=== PATIENT | female | born 1935 | race Caucasian/White ===

== ENCOUNTER 2018-07-09 20:52 | Inpatient (IN) ==
[2018-07-09] MEDS: 0.9 % Sodium Chloride 1,000 ML IVC SCH (23:15)
[2018-07-09] MEDS ORDERED: Naloxone 0.4 MG/ML INJ IVP PRN (23:24)
--- NOTE | 2018-07-09 23:30 | Internal Med History&Physical ---
Date of Encounter: 07/10/18 Time of Encounter: 23:30 Internal Medicine - H&P: HPI Chief complaint: Mechanical Fall/Hip & Wrist Fx History of present illness: Ms. Michael is a pleasant 82 year old female with past medical history of arthritis, hypertension and hyperlipidemia who presented earlier today to [facility] after a reported mechanical fall in her kitchen. She states that she was baking earlier today around 2 PM and as she was walking from one end of the kitchen to the other she tripped and fell landing into one of the appliances against her right arm has subsequently went down to the ground. She denies any symptoms of dizziness or lightheadedness prior or chest pain, shortness of breath. She was able to stand up on her own and initially felt okay. It was not until around 5:30 PM in the afternoon in which her pain gradually increased and she became concerned that something was wrong. It was at this time she called her daughter who then brought her into the ED at [facility]. Imaging of the hip revealed a right subcapital hip fracture as well as a linear lucency noted within the radial styloid process concerning for a nondisplaced fracture. Labs were notable for a mild leukocytosis of 13.8. Patient is not currently on any blood thinners. Past Med Surg Social Fam HX - Past Medical History Medical history: arthritis, GERD, hyperlipidemia, hypertension, other Additional medical history: Hypothyroidism, Anxiety Psychiatric history: anxiety - Past Surgical History Additional surgical history: Back surgery x3. Hernia surgeries x2. Lt foot surgery. Lt toe surgery. Varicose vein surgery. Rt knee surgery - Social History Smoking Status: Never smoker Smokeless Tobacco Status: No Alcohol use: none Drug use: none - Family History Mother Living Status: Age at : 82 Cause of : pancreatic cancer Hx Family Cancer: Yes Father Living Status: Age at : 87 Cause of : stroke Hx Family Cardiac Disorders: Yes Internal Medicine - H&P: Meds Amitriptyline [Elavil] 50 mg PO HS 08/14/16 [History] Furosemide [Lasix] 20 mg PO Q48H 08/14/16 [History] Omeprazole [PriLOSEC] 20 mg PO DAILY 08/14/16 [History] Pravastatin Sodium [Pravachol] 40 mg PO DAILY 08/14/16 [History] Zonisamide [Zonegran] 100 mg PO HS 08/14/16 [History] diazePAM [Valium] 2 mg PO BID 08/14/16 [History] Aspirin Enteric Coated [Aspirin EC] 162 mg PO DAILY 07/10/18 [History] Calcium Carbonate [Calcium] 500 mg PO DAILY 07/10/18 [History] Lactobacillus Acidophilus/Fos [Acidophilus Probiotic Tablet] 1 each PO DAILY 08/17 [History] Lisinopril [Zestril] 10 mg PO DAILY 07/10/18 [History] Multivit-Minerals/Folic/Ginkgo [One Daily For Women 50+ Adv Tb] 1 each PO DAILY 07/10/18 [History] 3 Allergy/AdvReac Type Severity Reaction Status Date / Time Penicillins Allergy Hives Verified 07/10/18 11:37 levofloxacin [From Levaquin] AdvReac Tendonitis Verified 07/10/18 11:37 All Systems PM: A 10-system review of systems was performed and is negative for pertinent findings except as documented above in the HPI. - Constitutional Constitutional: no chills, no fever(s), no night sweats - EENT Eyes: no change in vision, no discharge, no pain, no photophobia Ears: no ear discharge, no ear pain, no tinnitus Nose, mouth and throat: no dysphagia, no nasal discharge, no neck pain, no sore throat - Cardiovascular Cardiovascular ROS IM: no chest pain, no diaphoresis, no dyspnea, no lightheadedness, no palpitations, no syncope - Respiratory Respiratory: no cough, no dyspnea, no wheezing, no excessive phlegm production - Gastrointestinal Gastrointestinal: no abdominal pain, no diarrhea, no hematemesis, no hematochezia, no melena, no nausea, no vomiting - Genitourinary Genitourinary: no change in urinary stream, no dysuria, no flank pain, no hematuria - Musculoskeletal Musculoskeletal ROS IM: no numbness, no tingling - Integumentary Integumentary IM: no rash, no unusual bruising - Neurological Neurological ROS: no confusion, no convulsions, no focal weakness, no numbness, no tingling, no tremor(s) - Hematologic/Lymphatic Hematologic/Lymphatic: no easy bruising - Constitutional Exam: General: Alert and oriented 3 Skin:Normal color, no rash, no lesions. HEENT:EOM, pupils equal, round and reactive. Cardiovascular:Normal S1 & S2, no rubs, murmurs or gallops. No JVD. Pulse regular. Lungs:Normal breath sounds, no wheezes or crackles. Abdomen:Soft, non-tender, no rigidity. Extremities:No deformity, no edema involving the right hip or right forearm. Mild tenderness tenderness, no joint swelling or clubbing. Neurological:Normal cognition and motor skills. Pulses:Carotid and radial pulses normal +2. Rest of the physical exam is non contributory Internal Med - H&P Results - Labs CBC & Chem 7: 07/10/18 00:37 07/10/18 00:37 - Assessment and plan (1) Closed right hip fracture Current Visit: No Status: Acute Assessment and plan: Nondisplaced right subcapital femoral neck fracture in the setting of mechanical fall. No evidence of surrounding edema. Patient hemodynamically stable. No evidence of bleed. Patient was able to ambulate if not for the pain. We will keep patient nothing by mouth after midnight. DVT prophylaxis. Pain regimen on board. Orthopedic consult in the morning. Qualifiers: Encounter type: initial encounter Qualified Code(s): S72.001A - Fracture of unspecified part of neck of right femur, initial encounter for closed fracture (2) Radial styloid fracture Current Visit: No Status: Acute Assessment and plan: Imaging showed subtle linear lucency within the radial styloid process suspicious for nondisplaced fracture. Right arm currently in a splint. Patient has good pulses. Further evaluation in the morning. Qualifiers: Encounter type: initial encounter Qualified Code(s): S52.513A - Displaced fracture of unspecified radial styloid process, initial encounter for closed fracture (3) Leukocytosis Current Visit: Yes Status: Acute Assessment and plan: Mildly elevated leukocytosis of 13.8. Likely in the setting of trauma. We will monitor. Qualifiers: Qualified Code(s): D72.829 - Elevated white blood cell count, unspecified (4) Hypertension Current Visit: Yes Status: Acute Assessment and plan: Continue home antihypertensives. Qualifiers: Hypertension type: unspecified Qualified Code(s): I10 - Essential (primary ) hypertension (5) Hyperlipidemia Current Visit: Yes Status: Acute Assessment and plan: Continue home statin. Qualifiers: Hyperlipidemia type: unspecified Qualified Code(s): E78.5 - Hyperlipidemia , unspecified (6) DVT prophylaxis Current Visit: Yes Status: Acute - Time Spent With Patient Total time spent is greater than 50% in coordination of care (as documented) at patient's floor/unit and/or counseling patient:
[2018-07-10] MEDS ORDERED: Ondansetron ODT 4 MG TAB.RAPDIS SL PRN (00:01)
[2018-07-10] MEDS ORDERED: Acetaminophen 325 MG TABLET PO PRN (00:01)
[2018-07-10] MEDS ORDERED: traMADol 50 MG TABLET PO PRN (00:01)
[2018-07-10 00:56] LABS: Basophils % 0.3 %; Hematocrit 39.2 % (35.3-44.9); Hemoglobin 12.9 g/dL (11.5-15.4); Immature Granulocytes % 0.5 % (0-4); Lymphocytes % 8.2 %; Mean Corpuscular HGB Conc 32.9 g/dL (31.6-35.5); Mean Corpuscular Hemoglobin 31.9 pg (28.0-33.3); Mean Platelet Volume 10.6 fL (9.4-12.4); Monocytes # 0.7 K/mcL (0.0-1.3); Monocytes % 5.8 %; Neutrophils # 10.7 K/mcL (1.6-8.9); Platelet Count 201 K/mcL (140-400); Red Blood Count 4.04 M/mcL (3.82-4.97); Red Cell Distribution Width 13.9 % (11.5-14.5); Segmented Neutrophils % 85.2 %
[2018-07-10] MEDS: *HR* Heparin 5,000 UNIT/ML VIAL SQ SCH ×4 (01:08→23:52)
[2018-07-10] MEDS: OXYCODONE Oral CONC 10 MG/0.5 ML ORAL.SYG SL PRN ×3 (01:09→20:58)
[2018-07-10 01:14] LABS: Alanine Aminotransferase 21 Units/L (7-52); Albumin/Globulin Ratio 1.9 (1.1-2.2); Alkaline Phosphatase 68 Units/L (34-104); Aspartate Amino Transferase 24 Units/L (13-39); BUN/Creatinine Ratio 12 (6-26); Bilirubin,Total 0.9 mg/dL (0.3-1.0); Blood Urea Nitrogen 13 mg/dL (8-23); Calcium 9.4 mg/dL (8.6-10.3); Carbon Dioxide 21 mEq/L (23-29); Chloride 110 mEq/L (98-107); Globulin 2.1 g/dL (2.4-3.5); Glucose 153 mg/dL (70-105); Osmolality,Calculated 293 (280-300); Potassium 3.4 mEq/L (3.5-5.1); Sodium 140 mEq/L (136-145); Total Protein 6.1 g/dL (6.4-8.9); eGFR For Non-African Americans 50 (> 60)
[2018-07-10] MEDS: 0.9 % Sodium Chloride 1,000 ML IVC SCH (08:58)
--- NOTE | 2018-07-10 17:23 | Orthopedic Consult Note ---
Date of Encounter: 07/10/18 Time of Encounter: 13:00 Assessment and Plan (1) Closed right hip fracture Current Visit: Yes Status: Acute Plan for OR 07/11 with for a Right Hip Pinning. Both conservative and surgical options discussed with patient and daughter. Risks veersus benefits reviewed, patient opted for surgery. Consent was signed by patient. NPO after midnight, pain control, medical management, and DVT prophylaxis. Qualifiers: Encounter type: initial encounter Qualified Code(s): S72.001A - Fracture of unspecified part of neck of right femur, initial encounter for closed fracture (2) Fracture of right ulnar styloid Current Visit: Yes Status: Acute Splint removed, skin assessed. Small abrasion to dorsum of forearm. New cast padding applied with splint. NV intact. Will plan to transition to brace x 2-4 weeks with rpeat xrays Qualifiers: Encounter type: initial encounter Fracture type: closed Fracture alignment: nondisplaced Qualified Code(s): S52.614A - Nondisplaced fracture of right ulna styloid process, initial encounter for closed fracture (3) Hyperlipidemia Current Visit: Yes Status: Acute Qualifiers: Hyperlipidemia type: unspecified Qualified Code(s): E78.5 - Hyperlipidemia , unspecified (4) Hypertension Current Visit: Yes Status: Acute Qualifiers: Hypertension type: essential hypertension Qualified Code(s): I10 - Essential (primary) hypertension History of Present Illness Chief complaint: Right Hip pain HPI: Alec is a pleasant 82 year old female with past medical history of arthritis , hypertension and hyperlipidemia who presented earlier today to [facility] after a reported mechanical fall in her kitchen. SHe lives independently, she tripped and fell landing into one of the appliances against her right arm has subsequently went down to the ground. She denies any symptoms of dizziness or lightheadedness prior or chest pain, shortness of breath. S Her pain gradually increased and was unable to ambulate. I Imaging of the hip revealed a right subcapital hip fracture as well as a linear lucency noted within the radial styloid process concerning for a nondisplaced fracture. Labs were notable for a mild leukocytosis of 13.8. Patient is not currently on any blood thinners. Past Med Surg Social Fam HX - Past Medical History Medical history: arthritis, GERD, hyperlipidemia, hypertension, other Additional medical history: Hypothyroidism, Anxiety Psychiatric history: anxiety - Past Surgical History Additional surgical history: Back surgery x3. Hernia surgeries x2. Lt foot surgery. Lt toe surgery. Varicose vein surgery. Rt knee surgery - Social History Smoking Status: Never smoker Smokeless Tobacco Status: No Alcohol use: none Drug use: none - Family History Mother Living Status: Age at : 82 Cause of : pancreatic cancer Hx Family Cancer: Yes Father Living Status: Age at : 87 Cause of : stroke Hx Family Cardiac Disorders: Yes Medications and Allergies Amitriptyline [Elavil] 50 mg PO HS 08/14/16 [History] Furosemide [Lasix] 20 mg PO Q48H 08/14/16 [History] Omeprazole [PriLOSEC] 20 mg PO DAILY 08/14/16 [History] Pravastatin Sodium [Pravachol] 40 mg PO DAILY 08/14/16 [History] Zonisamide [Zonegran] 100 mg PO HS 08/14/16 [History] diazePAM [Valium] 2 mg PO BID 08/14/16 [History] Aspirin Enteric Coated [Aspirin EC] 162 mg PO DAILY 07/10/18 [History] Calcium Carbonate [Calcium] 500 mg PO DAILY 07/10/18 [History] Lactobacillus Acidophilus/Fos [Acidophilus Probiotic Tablet] 1 each PO DAILY 08/17 [History] Lisinopril [Zestril] 10 mg PO DAILY 07/10/18 [History] Multivit-Minerals/Folic/Ginkgo [One Daily For Women 50+ Adv Tb] 1 each PO DAILY 07/10/18 [History] 3 Allergy/AdvReac Type Severity Reaction Status Date / Time Penicillins Allergy Hives Verified 07/10/18 11:37 levofloxacin [From Levaquin] AdvReac Tendonitis Verified 07/10/18 11:37 All Systems Reviewed: The remainder of the systems were reviewed and are negative Physical Exam - Constitutional Vitals: Temp Pulse Resp BP Pulse Ox 97.9 F 94 16 143/77 96 07/10/18 17:07 07/10/18 17:07 07/10/18 17:07 07/10/18 17:07 07/10/18 03:31 - Fracture right hip Appearance: other Compartments: soft Distal extremity neurovascularly intact: Yes Proximal joint involvement: No Distal joint involvement: No Other injury: muscle injury: no, tendon injury: no, ligament injury: no, vascular injury: no, nerve injury: no Results - Labs Result Diagrams: 07/11/18 11:06 07/11/18 11:06 Labs: Abnormal lab results WBC 12.6 K/mcL (4.3-11.1) H 07/10/18 00:37 Neutrophils # 10.7 K/mcL (1.6-8.9) H 07/10/18 00:37 Potassium 3.4 mEq/L (3.5-5.1) L 07/10/18 00:37 Chloride 110 mEq/L (98-107) H 07/10/18 00:37 Carbon Dioxide 21 mEq/L (23-29) L 07/10/18 00:37 Est GFR (Non-Af Amer) 50 (> 60) L 07/10/18 00:37 Glucose 153 mg/dL (70-105) H 07/10/18 00:37 Serum Total Protein 6.1 g/dL (6.4-8.9) L 07/10/18 00:37 Globulin 2.1 g/dL (2.4-3.5) L 07/10/18 00:37 H & H 07/10/18 Range/Units 00:37 Hgb 12.9 (11.5-15.4) g/dL Hct 39.2 (35.3-44.9) % All other labs normal. - Diagnostic results Wrist/Hand x-ray: report reviewed, image reviewed Hip x-ray: report reviewed, image reviewed Consult Discharge Plan - Plan Referrals: Madelyn Villa MD [Primary Care Provider] -
[2018-07-10] MEDS ORDERED: Furosemide 20 MG TABLET PO SCH (19:00)
--- NOTE | 2018-07-10 19:40 | Internal Med Progress Note ---
Hospitalist Progress Note - Encounter Date of Encounter: 07/10/18 Time of Encounter: 11:00 - Subjective Interval History: Patient's with right hip pain secondary to right hip fracture status post mechanical fall. Patient also with styloid fracture of right arm - Exam Vitals: Temp Pulse Resp BP Pulse Ox 97.9 F 94 16 143/77 96 07/10/18 17:07 07/10/18 17:07 07/10/18 17:07 07/10/18 17:07 07/10/18 03:31 Exam: Gen.: Nonacute distress, alert and oriented 3 ENT: Mucosal membranes moist Respiratory: Lungs are clear to auscultation bilaterally without any wheezing rhonchi or rales Cardiovascular: Normal S1 and S2 regular rate rhythm no murmurs rubs or gallops Abdomen: Soft, nontender and nondistended with positive bowel sounds Extremities: No lower extremity edema Skin: Normal color - Assessment and Plan (1) Closed right hip fracture Current Visit: No Status: Acute Assessment and Plan: Nondisplaced right subcapital femoral neck fracture in the setting of mechanical fall. Patient hemodynamically stable. Orthopedics consulted with plans for surgery on 07/11/18 (2) Radial styloid fracture Current Visit: No Status: Acute Assessment and Plan: Imaging showed subtle linear lucency within the radial styloid process suspicious for nondisplaced fracture. Right arm currently in a splint. Orthopedics consulted and appreciate recommendations (3) Hypertension Current Visit: Yes Status: Acute Assessment and Plan: Continue home antihypertensives. (4) Hyperlipidemia Current Visit: Yes Status: Acute Assessment and Plan: Continue home statin. (5) Leukocytosis Current Visit: Yes Status: Acute Assessment and Plan: Mildly elevated leukocytosis of 13.8. Likely in the setting of trauma. We will monitor. (6) DVT prophylaxis Current Visit: Yes Status: Acute Assessment and Plan: Heparin subcutaneous - Time Spent with Patient Total time spent is greater than 50% in coordination of care (as documented) at patient's floor/unit and/or counseling patient: Internal Medicine: Result - Labs CBC & Chem 7: 07/10/18 00:37 07/10/18 00:37 Labs: Short CBC 07/10/18 Range/Units 00:37 WBC 12.6 H (4.3-11.1) K/mcL Hgb 12.9 (11.5-15.4) g/dL Hct 39.2 (35.3-44.9) % Plt Count 201 (140-400) K/mcL Neutrophils # 10.7 H (1.6-8.9) K/mcL BMP 07/10/18 00:37 Sodium 140 Potassium 3.4 L Chloride 110 H Carbon Dioxide 21 L BUN 13 Creatinine 1.05 Glucose 153 H Calcium 9.4 Liver Function 07/10/18 Range/Units 00:37 Total Bilirubin 0.9 (0.3-1.0) mg/dL AST 24 (13-39) Units/L ALT 21 (7-52) Units/L Alkaline Phosphatase 68 (34-104) Units/L Albumin 4.0 (3.5-5.7) g/dL - Impressions Impressions Hip CT 07/10/18 10:33 IMPRESSION: 1. Acute right femoral subcapital neck fracture with mild impaction, displacement, and rotation. Normal right hip alignment. 2. Bilateral hip osteoarthritis. 3. Mild right lateral hip subcutaneous contusion. D/ / 07/10/2018 11:24:50 Henok Arellano MD / devante Interpreting Provider: Henok Arellano MD Consult Discharge Plan - Plan Referrals: Madelyn Villa MD [Primary Care Provider] - (1) Closed right hip fracture Qualifiers: Encounter type: initial encounter Qualified Code(s): S72.001A - Fracture of unspecified part of neck of right femur, initial encounter for closed fracture (2) Radial styloid fracture Qualifiers: Encounter type: initial encounter Qualified Code(s): S52.513A - Displaced fracture of unspecified radial styloid process, initial encounter for closed fracture (3) Hypertension Qualifiers: Hypertension type: unspecified Qualified Code(s): I10 - Essential (primary) hypertension (4) Hyperlipidemia Qualifiers: Hyperlipidemia type: unspecified Qualified Code(s): E78.5 - Hyperlipidemia, unspecified (5) Leukocytosis Qualifiers: Qualified Code(s): D72.829 - Elevated white blood cell count, unspecified
[2018-07-10] MEDS: diazePAM 2 MG TABLET PO SCH (20:57)
--- NOTE | 2018-07-11 06:37 | Orthopedics Progress Note ---
Date of Encounter: 07/11/18 Time of Encounter: 06:36 Subjective Interval history: Reviewed x-ray and CT scan nondisplaced fracture right hip. Plan for right hip pinning. Discussed this with the patient, surgery will be this afternoon. We reviewed the risks and benefits as well as recovery. All questions were answered. The patient agreed to this treatment plan and appeared to understand the plan is reviewed. Objective Vital signs: Vital Signs Temp Pulse Resp BP Pulse Ox 07/11/18 04:33 98.2 F 87 16 111/68 90 07/11/18 00:55 98.1 F 86 17 115/70 90 07/10/18 22:10 92 07/10/18 20:11 99.0 F 88 16 122/71 92 07/10/18 17:07 97.9 F 94 16 143/77 07/10/18 11:38 98.9 F 92 16 125/74 07/10/18 07:40 98.0 F 89 16 114/69 Intake and Output 07/10/18 07/10/18 07/11/18 15:59 23:59 07:59 Intake Total 1000 / 1000 240 / 240 Output Total 400 / 400 Balance 600 / 600 240 / 240 Intake: IV Fluids 1000 / 1000 0.9 % Sodium Chloride 1,000 ML 1000 / 1000 @ 100 mls/hr IVC .Q10H CORKY Rx#: [id number] Oral 240 / 240 Output: Urine 400 / 400 Other: Meal Dinner Percent of Meal Consumed 100% # Voids 1 1 Weight 58.8 kg Patient Weight 07/11/18 23:59 Weight 58.8 kg - Labs CBC & BMP: 07/10/18 00:37 07/10/18 00:37 Labs: Abnormal lab results WBC 12.6 K/mcL (4.3-11.1) H 07/10/18 00:37 Neutrophils # 10.7 K/mcL (1.6-8.9) H 07/10/18 00:37 Potassium 3.4 mEq/L (3.5-5.1) L 07/10/18 00:37 Chloride 110 mEq/L (98-107) H 07/10/18 00:37 Carbon Dioxide 21 mEq/L (23-29) L 07/10/18 00:37 Est GFR (Non-Af Amer) 50 (> 60) L 07/10/18 00:37 Glucose 153 mg/dL (70-105) H 07/10/18 00:37 Serum Total Protein 6.1 g/dL (6.4-8.9) L 07/10/18 00:37 Globulin 2.1 g/dL (2.4-3.5) L 07/10/18 00:37 Consult Discharge Plan - Plan Referrals: Madelyn Villa MD [Primary Care Provider] -
[2018-07-11] MEDS ORDERED: Aspirin Enteric Coated 81 MG Tablet PO SCH (09:00)
[2018-07-11] MEDS ORDERED: Multivit/Ca/Min/Fe/FA 1 TAB TABLET PO SCH (09:00)
[2018-07-11] MEDS ORDERED: Lactobacillus 1 EACH CAP.SPRINK PO SCH (09:00)
[2018-07-11] MEDS: *HR* Heparin 5,000 UNIT/ML VIAL SQ SCH ×2 (10:49→16:26)
[2018-07-11] MEDS: diazePAM 2 MG TABLET PO SCH ×2 (10:49→20:00)
[2018-07-11] MEDS: OXYCODONE Oral CONC 10 MG/0.5 ML ORAL.SYG SL PRN (10:53)
--- NOTE | 2018-07-11 10:55 | Internal Med Progress Note ---
Hospitalist Progress Note - Encounter Date of Encounter: 07/11/18 Time of Encounter: 11:00 - Subjective Interval History: Patient's with right hip pain secondary to right hip fracture status post mechanical fall. Patient also with styloid fracture of right arm. Patient to go today for right hip pinning per orthopedic recommendations - Exam Vitals: Temp Pulse Resp BP Pulse Ox 98.2 F 91 16 111/67 96 07/11/18 10:42 07/11/18 10:42 07/11/18 10:42 07/11/18 10:42 07/11/18 10:42 Exam: Gen.: Nonacute distress, alert and oriented 3 ENT: Mucosal membranes moist Respiratory: Lungs are clear to auscultation bilaterally without any wheezing rhonchi or rales Cardiovascular: Normal S1 and S2 regular rate rhythm no murmurs rubs or gallops Abdomen: Soft, nontender and nondistended with positive bowel sounds Extremities: No lower extremity edema Skin: Normal color - Assessment and Plan (1) Closed right hip fracture Current Visit: Yes Status: Acute Assessment and Plan: Patient's with right hip pain secondary to right hip fracture status post mechanical fall. Patient to go today for right hip pinning per orthopedic recommendations (2) Fracture of right ulnar styloid Current Visit: Yes Status: Acute Assessment and Plan: Right arm currently in splint Orthopedics following and appreciate recommendations (3) Hypertension Current Visit: Yes Status: Acute Assessment and Plan: Continue home antihypertensives. (4) Hyperlipidemia Current Visit: Yes Status: Acute Assessment and Plan: Continue home statin. (5) Leukocytosis Current Visit: Yes Status: Acute Assessment and Plan: Mildly elevated leukocytosis of 13.8. Likely in the setting of trauma. We will monitor. (6) DVT prophylaxis Current Visit: Yes Status: Acute Assessment and Plan: Heparin subcutaneous - Time Spent with Patient Total time spent is greater than 50% in coordination of care (as documented) at patient's floor/unit and/or counseling patient: Internal Medicine: Result - Labs CBC & Chem 7: 07/11/18 11:06 07/11/18 11:06 - Impressions Impressions Hip CT 07/10/18 10:33 IMPRESSION: 1. Acute right femoral subcapital neck fracture with mild impaction, displacement, and rotation. Normal right hip alignment. 2. Bilateral hip osteoarthritis. 3. Mild right lateral hip subcutaneous contusion. D/ / 07/10/2018 11:24:50 Henok Arellano MD / devante Interpreting Provider: Henok Arellano MD Consult Discharge Plan - Plan Referrals: Madelyn Villa MD [Primary Care Provider] - (1) Closed right hip fracture Qualifiers: Encounter type: initial encounter Qualified Code(s): S72.001A - Fracture of unspecified part of neck of right femur, initial encounter for closed fracture (2) Fracture of right ulnar styloid Qualifiers: Encounter type: initial encounter Fracture type: closed Fracture alignment: nondisplaced Qualified Code(s): S52.614A - Nondisplaced fracture of right ulna styloid process, initial encounter for closed fracture (3) Hypertension Qualifiers: Hypertension type: essential hypertension Qualified Code(s): I10 - Essential (primary) hypertension (4) Hyperlipidemia Qualifiers: Hyperlipidemia type: unspecified Qualified Code(s): E78.5 - Hyperlipidemia, unspecified
[2018-07-11 11:32] LABS: Basophils # 0.1 K/mcL (0.0-0.2); Basophils % 0.8 %; Eosinophils # 0.3 K/mcL (0.0-0.6); Eosinophils % 3.4 %; Hemoglobin 12.3 g/dL (11.5-15.4); Immature Granulocytes % 0.4 % (0-4); Lymphocytes # 1.2 K/mcL (0.6-4.6); Lymphocytes % 13.7 %; Mean Corpuscular HGB Conc 33.2 g/dL (31.6-35.5); Mean Corpuscular Hemoglobin 32.3 pg (28.0-33.3); Mean Corpuscular Volume 97.1 fL (83.0-100.0); Mean Platelet Volume 11.1 fL (9.4-12.4); Monocytes # 0.7 K/mcL (0.0-1.3); Monocytes % 8.4 %; Neutrophils # 6.3 K/mcL (1.6-8.9); Platelet Count 164 K/mcL (140-400); Red Blood Count 3.81 M/mcL (3.82-4.97); Red Cell Distribution Width 14.4 % (11.5-14.5); Segmented Neutrophils % 73.3 %
[2018-07-11 11:51] LABS: BUN/Creatinine Ratio 11 (6-26); Blood Urea Nitrogen 11 mg/dL (8-23); Calcium 8.7 mg/dL (8.6-10.3); Carbon Dioxide 24 mEq/L (23-29); Chloride 107 mEq/L (98-107); Glucose 95 mg/dL (70-105); Osmolality,Calculated 287 (280-300); Potassium 3.6 mEq/L (3.5-5.1); Sodium 139 mEq/L (136-145); eGFR For Non-African Americans 51 (> 60)
[2018-07-11] MEDS ORDERED: *HR* FentaNYL (PF) 100 MCG/2 ML VIAL ONE (16:12)
[2018-07-11] MEDS ORDERED: *HR* Propofol 200 MG/20 ML VIAL IVP ONE (16:13)
[2018-07-11] MEDS ORDERED: Acetaminophen IV 1,000 MG/100 ML INFUS..BTL ONE (16:21)
[2018-07-11] MEDS ORDERED: Famotidine 20 MG/2 ML VIAL ONE (16:22)
--- NOTE | 2018-07-11 16:26 | Anesthesia Evaluation PreOp ---
Date of Encounter: 07/11/18 Time of Encounter: 16:30 - Past History Planned Operation: Perc Pinning Rt Hip Cardiac History: HTN, Hyperlipidemia Pulmonary History: Denies Any Significant HX DATA ANALYTICS ANALYST History: Denies Any Significant HX Other Medical History: Thyroid (Hypothyroid), GERD, Other (Arthritis Anxiety) Anesthesia History: No Prior Anesthetic Complications Alcohol Use: none Drug use: none Medications and Allergies Amitriptyline [Elavil] 50 mg PO HS 08/14/16 [History] Furosemide [Lasix] 20 mg PO Q48H 08/14/16 [History] Omeprazole [PriLOSEC] 20 mg PO DAILY 08/14/16 [History] Pravastatin Sodium [Pravachol] 40 mg PO DAILY 08/14/16 [History] Zonisamide [Zonegran] 100 mg PO HS 08/14/16 [History] diazePAM [Valium] 2 mg PO BID 08/14/16 [History] Aspirin Enteric Coated [Aspirin EC] 162 mg PO DAILY 07/10/18 [History] Calcium Carbonate [Calcium] 500 mg PO DAILY 07/10/18 [History] Lactobacillus Acidophilus/Fos [Acidophilus Probiotic Tablet] 1 each PO DAILY 08/17 [History] Lisinopril [Zestril] 10 mg PO DAILY 07/10/18 [History] Multivit-Minerals/Folic/Ginkgo [One Daily For Women 50+ Adv Tb] 1 each PO DAILY 07/10/18 [History] 3 Allergy/AdvReac Type Severity Reaction Status Date / Time Penicillins Allergy Hives Verified 07/10/18 11:37 levofloxacin [From Levaquin] AdvReac Tendonitis Verified 07/10/18 11:37 - Meds/Allergy Pre-op Review Medications Reviewed: Yes Allergies Reviewed: Yes Beta Blockers on Current Med List: No Anesthesia Results - Labs 07/11/18 11:06 07/11/18 11:06 Laboratory Tests 07/11/18 07/11/18 11:06 11:06 Hgb 12.3 Hct 37.0 Plt Count 164 Sodium 139 Potassium 3.6 BUN 11 Creatinine 1.04 Anesthesia Exam O2 Sat Weight 58.8 kg O2 Sat by Pulse Oximetry 97 O2 Sat by Pulse Oximetry 96 O2 Sat by Pulse Oximetry 90 O2 Sat by Pulse Oximetry 90 O2 Sat by Pulse Oximetry 92 O2 Sat by Pulse Oximetry 92 Vital Signs Temp Pulse Resp BP Pulse Ox 98.7 F 82 18 106/70 93 07/10/18 00:59 07/10/18 00:59 07/10/18 00:59 07/10/18 00:59 07/10/18 00:59 Height: 5'0 Weight: 129 lbs NPO (# of Hours): MN Pain Scale: 0 - HEENT Pupil (Motor): Pupils equal, EOMI Mallampati: II Oral Opening: Greater than 3 - DATA ANALYTICS ANALYST LOC: Oriented DATA ANALYTICS ANALYST Motor: Normal RUE, Normal LUE, Normal RLE, Normal LLE, Normal Face DATA ANALYTICS ANALYST Sensory: Normal: RUE, LUE, RLE, LLE, Face - Cardiac Rhythm: Regular Murmur: None JVD: No Carotid Bruit: No - Pulmonary Breath Sounds: bilateral Clear Respiratory Effort: Symmetrical Anesthesia Assess/Plan ASA Score: 3 (HTN Hyperlipidemia Gerd Hypothyroid Osteoarthritis Extreme of Age) Modified [place] Scale for Level of Consciousness: Cooperative, oriented, and tranquil Anesthetic Plan: General Monitoring Plan: Standard Monitors Recovery Plan: PACU (Discussed GA, agrees to proceed)
[2018-07-11] MEDS ORDERED: Clindamycin 900 MG/50 ML 900 MG/50 ML IV.SOLN IVPB ONE (16:40)
[2018-07-11] MEDS ORDERED: *HR* OxyCODONE Immed Rel 5 MG TABLET PO PRN (17:04)
[2018-07-11] MEDS ORDERED: *HR* Morphine 2 MG/ML SYRINGE IVP PRN (17:04)
[2018-07-11] MEDS ORDERED: *HR* Promethazine 25 MG/ML VIAL IVP PRN (17:04)
[2018-07-11] MEDS ORDERED: *HR* PHENYLEPHRINE 1,000 MCG/10 ML SYRINGE IVP ONE (17:07)
--- NOTE | 2018-07-11 17:10 | Orthopedic Operative Note ---
Date of procedure: 07/11/18 Pre-op diagnosis: Nondisplaced right femoral neck fracture Post-op diagnosis: same Procedure: Procedure: Right hip pinning Estimated blood loss: 5 cc Hardware:Synthes 2 7.3 cannulated metal screws Operative procedure: The patient was brought to the operating room and placed on the operating room table. After general anesthesia was administered the well leg was place in the well leg curiel and the operative leg was placed in the fracture leg curiel. All pressure points were padded appropriately. The operative extremity was prepped and draped in the sterile surgical fashion patient received IV antibiotic prior to skin incision. Using fluoroscopic assistance a guidepin was placed through a small stab incision on the lateral aspect of the femur. Placed through the lateral femur across the fracture site into the femoral head addition of the guidepin was found to be acceptable in AP and lateral planes. A second guidepin was placed in an appropriate position and confirmed with fluoroscopy. Two 7.3 cannulated screws were placed over the guidepins, and their position was confirmed with fluoroscopy as well. Hardware as well as fracture site was well reduced and well positioned. Wound was irrigated and closed with a 2-0 Monocryl suture The patient was placed in a sterile dressing The patient was extubated and transferred to the recovery room in stable condition. Anesthesia: GETA Surgeon: Sacha Mccullough Was there an communication assistant present: No Estimated blood loss (cc): 5 Condition: stable Disposition: PACU
--- NOTE | 2018-07-11 17:39 | Anesthesia Evaluation Post Op ---
Date of Encounter: 07/11/18 Time of Encounter: 17:50 - Vital Signs Vital Signs: Vital Signs/O2 Sat/Glucose, Most Current Temp Pulse Resp BP Pulse Ox 07/11/18 17:33 87 16 110/77 97 07/11/18 17:23 89 18 110/79 97 07/11/18 17:13 101.0 F H 90 18 101/58 93 07/11/18 16:25 96 18 140/74 94 07/11/18 14:00 98.4 F 87 16 117/64 97 - Lungs Lungs: Clear Ascult./Percussion - Airway Airway: Non-obstructed - Cardiovascular Regular Rate - Mental Status Mental Status: Alert & Oriented, Answers Appropriately - Pain Pain Scale: 0 - Nausea Vomiting Nausea Vomiting: Not Present - Hydration Hydration: NPO - Discharge PostOp Status: Transfer Patient to floor
[2018-07-11] MEDS ORDERED: Acetaminophen 325 MG TABLET PO PRN (18:15)
[2018-07-11] MEDS ORDERED: Naloxone 0.4 MG/ML INJ IVP PRN ×2 (18:15)
[2018-07-11] MEDS ORDERED: traMADol 50 MG TABLET PO PRN (18:15)
[2018-07-11] MEDS ORDERED: Ondansetron ODT 4 MG TAB.RAPDIS SL PRN (18:15)
[2018-07-12] MEDS: *HR* Heparin 5,000 UNIT/ML VIAL SQ SCH ×3 (00:09→16:17)
[2018-07-12] MEDS: Clindamycin 900 MG/50 ML 900 MG/50 ML IV.SOLN IVPB SCH ×2 (00:09→08:35)
[2018-07-12 06:27] LABS: Hematocrit 34.8 % (35.3-44.9); Hemoglobin 11.4 g/dL (11.5-15.4)
--- NOTE | 2018-07-12 07:56 | Internal Med Progress Note ---
Hospitalist Progress Note - Encounter Date of Encounter: 07/12/18 Time of Encounter: 11:00 - Subjective Interval History: Patient's with right hip pain secondary to right hip fracture status post mechanical fall. Patient also with styloid fracture of right arm. Postop day 1 right hip pinning - Exam Vitals: Temp Pulse Resp BP Pulse Ox 98.1 F 75 16 119/65 97 07/12/18 07:25 07/12/18 07:25 07/12/18 07:25 07/12/18 07:25 07/12/18 07:25 Exam: Gen.: Nonacute distress, alert and oriented 3 ENT: Mucosal membranes moist Respiratory: Lungs are clear to auscultation bilaterally without any wheezing rhonchi or rales Cardiovascular: Normal S1 and S2 regular rate rhythm no murmurs rubs or gallops Abdomen: Soft, nontender and nondistended with positive bowel sounds Extremities: No lower extremity edema Skin: Normal color - Assessment and Plan (1) Closed right hip fracture Current Visit: Yes Status: Acute Assessment and Plan: Patient's with right hip pain secondary to right hip fracture status post mechanical fall. Postop day 1 right hip pinning Patient [place] placement for [place] [facility] for strengthening conditioning Orthopedics following in appreciate any additional recommendations (2) Fracture of right ulnar styloid Current Visit: Yes Status: Acute Assessment and Plan: Right arm currently in splint Orthopedics following and appreciate recommendations (3) Hypertension Current Visit: Yes Status: Acute Assessment and Plan: Controlled; continue SONU inhibitor (4) Hyperlipidemia Current Visit: Yes Status: Acute Assessment and Plan: Continue home statin. (5) Leukocytosis Current Visit: Yes Status: Acute DVT Prophylaxis: Heparin subcutaneous - Time Spent with Patient Total time spent is greater than 50% in coordination of care (as documented) at patient's floor/unit and/or counseling patient: Internal Medicine: Result - Labs CBC & Chem 7: 07/12/18 08:15 07/12/18 08:15 Labs: Short CBC 07/11/18 07/12/18 Range/Units 11:06 06:14 WBC 8.6 (4.3-11.1) K/mcL Hgb 12.3 11.4 L (11.5-15.4) g/dL Hct 37.0 34.8 L (35.3-44.9) % Plt Count 164 (140-400) K/mcL Neutrophils # 6.3 (1.6-8.9) K/mcL BMP 07/11/18 11:06 Sodium 139 Potassium 3.6 Chloride 107 Carbon Dioxide 24 BUN 11 Creatinine 1.04 Glucose 95 Calcium 8.7 - Impressions Impressions Hip X-Ray 07/11/18 16:46 IMPRESSION: Placement of partially threaded screws in the right femoral neck without evidence of hardware complication. D/ / Ezequiel Yoder MD / Ezequiel Yoder MD Interpreting Provider: Ezequiel Yoder MD Fluoroscopy 07/11/18 16:50 IMPRESSION: Please see operative report for further details. D/ / Ezequiel Yoder MD / Ezequiel Yoder MD Interpreting Provider: Ezequiel Yoder MD Hip X-Ray 07/11/18 16:50 IMPRESSION: Please see operative report for further details. D/ / Ezequiel Yoder MD / Ezequiel Yoder MD Interpreting Provider: Ezequiel Yoder MD Consult Discharge Plan - Plan Referrals: Madelyn Villa MD [Primary Care Provider] - (1) Closed right hip fracture Qualifiers: Encounter type: initial encounter Qualified Code(s): S72.001A - Fracture of unspecified part of neck of right femur, initial encounter for closed fracture (2) Fracture of right ulnar styloid Qualifiers: Encounter type: initial encounter Fracture type: closed Fracture alignment: nondisplaced Qualified Code(s): S52.614A - Nondisplaced fracture of right ulna styloid process, initial encounter for closed fracture (3) Hypertension Qualifiers: Hypertension type: essential hypertension Qualified Code(s): I10 - Essential (primary) hypertension (4) Hyperlipidemia Qualifiers: Hyperlipidemia type: unspecified Qualified Code(s): E78.5 - Hyperlipidemia, unspecified
[2018-07-12] MEDS: Lactobacillus 1 EACH CAP.SPRINK PO SCH (08:34)
[2018-07-12] MEDS: diazePAM 2 MG TABLET PO SCH ×2 (08:34→19:50)
[2018-07-12] MEDS: Multivit/Ca/Min/Fe/FA 1 TAB TABLET PO SCH (08:35)
[2018-07-12] MEDS: Aspirin Enteric Coated 81 MG Tablet PO SCH (08:35)
[2018-07-12 08:37] LABS: Basophils # 0.1 K/mcL (0.0-0.2); Basophils % 0.9 %; Eosinophils # 0.1 K/mcL (0.0-0.6); Hematocrit 41.3 % (35.3-44.9); Immature Granulocytes % 0.4 % (0-4); Lymphocytes # 1.2 K/mcL (0.6-4.6); Mean Corpuscular HGB Conc 32.2 g/dL (31.6-35.5); Mean Corpuscular Hemoglobin 32.1 pg (28.0-33.3); Mean Corpuscular Volume 99.8 fL (83.0-100.0); Mean Platelet Volume 11.6 fL (9.4-12.4); Monocytes # 0.7 K/mcL (0.0-1.3); Monocytes % 8.8 %; Neutrophils # 6.1 K/mcL (1.6-8.9); Platelet Count 178 K/mcL (140-400); Red Blood Count 4.14 M/mcL (3.82-4.97); Red Cell Distribution Width 13.9 % (11.5-14.5); Segmented Neutrophils % 73.9 %
[2018-07-12] MEDS: OXYCODONE Oral CONC 10 MG/0.5 ML ORAL.SYG SL PRN ×3 (08:41→21:00)
[2018-07-12 08:42] LABS: Hemoglobin 13.3 g/dL (11.5-15.4)
[2018-07-12 08:57] LABS: BUN/Creatinine Ratio 13 (6-26); Blood Urea Nitrogen 13 mg/dL (8-23); Calcium 8.9 mg/dL (8.6-10.3); Carbon Dioxide 24 mEq/L (23-29); Chloride 106 mEq/L (98-107); Glucose 103 mg/dL (70-105); Osmolality,Calculated 284 (280-300); Potassium 3.9 mEq/L (3.5-5.1); Sodium 137 mEq/L (136-145); eGFR For Non-African Americans 54 (> 60)
--- NOTE | 2018-07-12 14:56 | Orthopedics Progress Note ---
Date of Encounter: 07/12/18 Time of Encounter: 14:52 Subjective Principal diagnosis: R hip fx Interval history: Patient is without complaints She is participating well with therapy Right hip: Dressings clean dry intact, no swelling, but nontender, grossly neurovascularly intact distally Right upper extremity: Long cockup fracture brace in place, repositioned as it was sliding down slightly distal. Positive swelling of digits. Abrasion to right small finger, skin tear to proximal right forearm. Assessment: postoperative day #1, doing well Plan: Continue nonweightbearing to right hand Continue ambulation with use of a platform walker Continue DVT prophylaxis Discharge planning Follow-up with Suki Ro PA-C in 2 weeks Objective Vital signs: Vital Signs Temp Pulse Resp BP Pulse Ox 07/12/18 11:15 97.7 F 72 16 104/54 94 07/12/18 07:25 98.1 F 75 16 119/65 97 07/12/18 04:45 98.4 F 75 16 108/68 97 07/12/18 00:28 98.0 F 75 18 114/64 93 07/11/18 21:05 98.4 F 88 17 118/68 94 07/11/18 20:10 94 07/11/18 20:05 98.1 F 81 17 121/70 94 07/11/18 19:05 16 119/60 94 07/11/18 18:43 76 16 112/51 93 07/11/18 18:05 98.3 F 88 16 109/66 92 07/11/18 17:43 99.9 F H 89 16 129/71 97 07/11/18 17:33 87 16 110/77 97 07/11/18 17:23 89 18 110/79 97 07/11/18 17:13 101.0 F H 90 18 101/58 93 07/11/18 16:25 96 18 140/74 94 Intake and Output 07/11/18 07/12/18 07/12/18 23:59 07:59 15:59 Intake Total 50 / 50 300 / 300 Output Total 355 / 355 Balance -355 / -355 50 / 50 300 / 300 Intake: IV Fluids 50 / 50 50 / 50 Cleocin Premix 900 MG/50 ML 900 50 / 50 50 / 50 mg In 50 ml @ 50 mls/hr IVPB Q8HR [facility] Rx#:[id number] Oral 250 / 250 Output: Urine 350 / 350 Estimated Blood Loss Other: Meal Breakfast Percent of Meal Consumed 50% Weight 58.3 kg Patient Weight 07/12/18 23:59 Weight 58.3 kg - Labs CBC & BMP: 07/12/18 08:15 07/12/18 08:15 Labs: Abnormal lab results Est GFR (Non-Af Amer) 54 (> 60) L 07/12/18 08:15 Serum Total Protein 6.1 g/dL (6.4-8.9) L 07/10/18 00:37 Globulin 2.1 g/dL (2.4-3.5) L 07/10/18 00:37 Consult Discharge Plan - Plan Referrals: Madelyn Villa MD [Primary Care Provider] -
[2018-07-12] MEDS ORDERED: Furosemide 20 MG TABLET PO SCH (19:00)
[2018-07-13] MEDS: *HR* Heparin 5,000 UNIT/ML VIAL SQ SCH ×3 (02:00→16:06)
[2018-07-13 07:20] LABS: Basophils # 0.1 K/mcL (0.0-0.2); Eosinophils # 0.5 K/mcL (0.0-0.6); Eosinophils % 7.1 %; Hematocrit 34.4 % (35.3-44.9); Immature Granulocytes % 0.4 % (0-4); Lymphocytes # 2.3 K/mcL (0.6-4.6); Lymphocytes % 33.7 %; Mean Corpuscular HGB Conc 32.3 g/dL (31.6-35.5); Mean Corpuscular Hemoglobin 32.3 pg (28.0-33.3); Mean Platelet Volume 11.7 fL (9.4-12.4); Monocytes # 0.9 K/mcL (0.0-1.3); Monocytes % 12.9 %; Platelet Count 179 K/mcL (140-400); Red Blood Count 3.44 M/mcL (3.82-4.97); Red Cell Distribution Width 14.1 % (11.5-14.5); Segmented Neutrophils % 44.9 %
[2018-07-13 07:26] LABS: Hemoglobin 11.1 g/dL (11.5-15.4)
[2018-07-13 07:49] LABS: Calcium 8.5 mg/dL (8.6-10.3); Potassium 3.7 mEq/L (3.5-5.1)
[2018-07-13] MEDS: Multivit/Ca/Min/Fe/FA 1 TAB TABLET PO SCH (10:22)
[2018-07-13] MEDS: Aspirin Enteric Coated 81 MG Tablet PO SCH (10:23)
[2018-07-13] MEDS: Lactobacillus 1 EACH CAP.SPRINK PO SCH (10:23)
[2018-07-13] MEDS: diazePAM 2 MG TABLET PO SCH ×2 (10:23→19:32)
--- NOTE | 2018-07-13 10:27 | Internal Med Progress Note ---
Hospitalist Progress Note - Encounter Date of Encounter: 07/13/18 Time of Encounter: 11:00 - Subjective Interval History: Patient's with right hip pain secondary to right hip fracture status post mechanical fall. Patient also with styloid fracture of right arm. Postop day 2 right hip pinning Patient [place] [facility] - Exam Vitals: Temp Pulse Resp BP Pulse Ox 98.2 F 77 16 109/73 95 07/13/18 07:21 07/13/18 07:21 07/13/18 07:21 07/13/18 07:21 07/13/18 03:18 Exam: Gen.: Nonacute distress, alert and oriented 3 ENT: Mucosal membranes moist Respiratory: Lungs are clear to auscultation bilaterally without any wheezing rhonchi or rales Cardiovascular: Normal S1 and S2 regular rate rhythm no murmurs rubs or gallops Abdomen: Soft, nontender and nondistended with positive bowel sounds Extremities: No lower extremity edema Skin: Normal color - Assessment and Plan (1) Closed right hip fracture Current Visit: Yes Status: Acute Assessment and Plan: Patient's with right hip pain secondary to right hip fracture status post mechanical fall. Postop day 2 right hip pinning Patient awaiting placement for [place] [facility] for strengthening conditioning Orthopedics following in appreciate any additional recommendations (2) Fracture of right ulnar styloid Current Visit: Yes Status: Acute Assessment and Plan: Right arm currently in splint Orthopedics following and appreciate recommendations (3) Hypertension Current Visit: Yes Status: Acute Assessment and Plan: Controlled; continue SONU inhibitor (4) Hyperlipidemia Current Visit: Yes Status: Acute Assessment and Plan: Continue home statin. (5) Leukocytosis Current Visit: Yes Status: Acute Assessment and Plan: Resolved; continue to monitor DVT Prophylaxis: Heparin subcutaneous - Time Spent with Patient Total time spent is greater than 50% in coordination of care (as documented) at patient's floor/unit and/or counseling patient: Internal Medicine: Result - Labs CBC & Chem 7: 07/13/18 06:19 07/13/18 06:19 Labs: Short CBC 07/13/18 Range/Units 06:19 WBC 6.7 (4.3-11.1) K/mcL Hgb 11.1 L D (11.5-15.4) g/dL Hct 34.4 L (35.3-44.9) % Plt Count 179 (140-400) K/mcL Neutrophils # 3.0 (1.6-8.9) K/mcL BMP 07/13/18 06:19 Sodium 137 Potassium 3.7 Chloride 104 Carbon Dioxide 27 BUN 15 Creatinine 1.16 Glucose 92 Calcium 8.5 L Consult Discharge Plan - Plan Referrals: Madelyn Villa MD [Primary Care Provider] - (1) Closed right hip fracture Qualifiers: Encounter type: initial encounter Qualified Code(s): S72.001A - Fracture of unspecified part of neck of right femur, initial encounter for closed fracture (2) Fracture of right ulnar styloid Qualifiers: Encounter type: initial encounter Fracture type: closed Fracture alignment: nondisplaced Qualified Code(s): S52.614A - Nondisplaced fracture of right ulna styloid process, initial encounter for closed fracture (3) Hypertension Qualifiers: Hypertension type: essential hypertension Qualified Code(s): I10 - Essential (primary) hypertension (4) Hyperlipidemia Qualifiers: Hyperlipidemia type: unspecified Qualified Code(s): E78.5 - Hyperlipidemia, unspecified
[2018-07-13] MEDS: OXYCODONE Oral CONC 10 MG/0.5 ML ORAL.SYG SL PRN ×2 (16:10→22:30)
[2018-07-14] MEDS: *HR* Heparin 5,000 UNIT/ML VIAL SQ SCH ×3 (00:03→16:11)
[2018-07-14 03:40] LABS: Basophils # 0.1 K/mcL (0.0-0.2); Eosinophils # 0.4 K/mcL (0.0-0.6); Hematocrit 33.2 % (35.3-44.9); Hemoglobin 10.9 g/dL (11.5-15.4); Immature Granulocytes % 0.6 % (0-4); Lymphocytes # 2.6 K/mcL (0.6-4.6); Lymphocytes % 36.8 %; Mean Corpuscular HGB Conc 32.8 g/dL (31.6-35.5); Mean Corpuscular Hemoglobin 32.4 pg (28.0-33.3); Mean Corpuscular Volume 98.8 fL (83.0-100.0); Mean Platelet Volume 11.2 fL (9.4-12.4); Neutrophils # 3.1 K/mcL (1.6-8.9); Platelet Count 189 K/mcL (140-400); Red Blood Count 3.36 M/mcL (3.82-4.97); Red Cell Distribution Width 14.3 % (11.5-14.5); Segmented Neutrophils % 42.6 %
[2018-07-14 03:56] LABS: BUN/Creatinine Ratio 14 (6-26); Blood Urea Nitrogen 15 mg/dL (8-23); Calcium 8.7 mg/dL (8.6-10.3); Carbon Dioxide 27 mEq/L (23-29); Chloride 105 mEq/L (98-107); Glucose 107 mg/dL (70-105); Osmolality,Calculated 285 (280-300); Potassium 3.8 mEq/L (3.5-5.1); Sodium 137 mEq/L (136-145); eGFR For Non-African Americans 50 (> 60)
[2018-07-14] MEDS: Aspirin Enteric Coated 81 MG Tablet PO SCH (08:19)
[2018-07-14] MEDS: Multivit/Ca/Min/Fe/FA 1 TAB TABLET PO SCH (08:19)
[2018-07-14] MEDS: diazePAM 2 MG TABLET PO SCH (08:19)
[2018-07-14] MEDS: Lactobacillus 1 EACH CAP.SPRINK PO SCH (08:19)
--- NOTE | 2018-07-14 15:19 | Discharge Summary ---
- NOTES TO OUTPATIENT PROVIDER Notes to Outpatient Provider: Patient to follow-up orthopedics as an outpatient Date of Encounter: 07/14/18 Time of Encounter: 11:00 - Discharge Diagnosis (1) Closed right hip fracture Priority: Primary Status: Acute Qualifiers: Encounter type: initial encounter Qualified Code(s): S72.001A - Fracture of unspecified part of neck of right femur, initial encounter for closed fracture (2) Fracture of right ulnar styloid Priority: Primary Status: Acute Qualifiers: Encounter type: initial encounter Fracture type: closed Fracture alignment: nondisplaced Qualified Code(s): S52.614A - Nondisplaced fracture of right ulna styloid process, initial encounter for closed fracture (3) Hypertension Priority: Secondary Status: Acute Qualifiers: Hypertension type: essential hypertension Qualified Code(s): I10 - Essential (primary) hypertension (4) Hyperlipidemia Priority: Secondary Status: Acute Qualifiers: Hyperlipidemia type: unspecified Qualified Code(s): E78.5 - Hyperlipidemia , unspecified (5) Leukocytosis Priority: Secondary Status: Acute Qualifiers: Leukocytosis type: unspecified Qualified Code(s): D72.829 - Elevated white blood cell count, unspecified Hospital course: Patient is a 82-year-old female with past medical history significant for arthritis, hypertension and hyperlipidemia who presented earlier today to [facility] after a reported mechanical fall in her kitchen. She states that she was baking and as she was walking from one end of the kitchen to the other she tripped and fell landing into one of the appliances against her right arm has subsequently went down to the ground. She denies any symptoms of dizziness or lightheadedness prior or chest pain, shortness of breath. She was able to stand up on her own and initially felt okay. It was not until later that afternoon in which her pain gradually increased and she became concerned that something was wrong. It was at this time she called her daughter who then brought her into the ED at [place]. Imaging of the hip revealed a right subcapital hip fracture as well as a linear lucency noted within the radial styloid process concerning for a nondisplaced fracture. Patient was transferred to the [facility] for further medical management. During patients hospital stay orthopedics consulted with recommendations for right hip pain which was done. Patient will be discharged to detention facility for strengthening and reconditioning. - Time Spent with Patient Total time spent providing and/or coordinating discharge services: Less than 30 minutes - Discharge Medications Prescriptions: diazePAM [Valium] 2 mg PO BID 3 Days #6 tablet OXYCODONE Oral CONC [Oxycodone Oral Conc] 10 mg SL Q4H PRN 3 Days #18 oral.syg PRN Reason: Severe Pain Home Medications: Amitriptyline [Elavil] 50 mg PO HS 08/14/16 [History] Furosemide [Lasix] 20 mg PO Q48H 08/14/16 [History] Omeprazole [PriLOSEC] 20 mg PO DAILY 08/14/16 [History] Pravastatin Sodium [Pravachol] 40 mg PO DAILY 08/14/16 [History] Zonisamide [Zonegran] 100 mg PO HS 08/14/16 [History] Aspirin Enteric Coated [Aspirin EC] 162 mg PO DAILY 07/10/18 [History] Calcium Carbonate [Calcium] 500 mg PO DAILY 07/10/18 [History] Lactobacillus Acidophilus/Fos [Acidophilus Probiotic Tablet] 1 each PO DAILY 08/17 [History] Lisinopril [Zestril] 10 mg PO DAILY 07/10/18 [History] Multivit-Minerals/Folic/Ginkgo [One Daily For Women 50+ Adv Tb] 1 each PO DAILY 07/10/18 [History] OXYCODONE Oral CONC [Oxycodone Oral Conc] 10 mg SL Q4H PRN 3 Days #18 oral.syg 07/14/18 [Rx] diazePAM [Valium] 2 mg PO BID 3 Days #6 tablet 07/14/18 [Rx] Allergies/Adverse Reactions: 3 Allergy/AdvReac Type Severity Reaction Status Date / Time Penicillins Allergy Hives Verified 07/10/18 11:37 levofloxacin [From Levaquin] AdvReac Tendonitis Verified 07/10/18 11:37 Date of admission: 07/09/18 23:34 Primary care physician: Madelyn Villa MD Consults: 07/10/18 00:05 Consult to Orthopedic Surgery [CONS] Routine Consulting Provider: Orthopedic and Sports Medicine Reason for Consult: Hip fracture/right nondisplaced styloid fracture Call Completed: No 07/11/18 11:16 Consult to Line Palletizer [CONS] Routine Reason for SW Consult: Rosa requested consult for potential rehab placement 07/11/18 18:15 Consult to Occupational Therapy [CONS] Routine Comment: Evaluate, develop and implement POC Reason for Consult: post hip surgery Does patient have active BEDREST order?: No Is patient medically & hemodynamically stable?: Yes Patient assessed for mobility or mobilized this visit?: Yes Consult to Orthopedic Navigator [CONS] [CONS] Routine Consult to Physical Therapy [CONS] Routine Comment: Evaluate, develop and implement POC Reason for Consult: post hip surgery Does patient have active BEDREST order?: No Is patient medically & hemodynamically stable?: Yes Patient assessed for mobility or mobilized this visit?: Yes Consult to Line Palletizer [CONS] Routine Reason for SW Consult: post -op hip fracture RT Post Op Consult [CONS] Routine - Constitutional Vitals: Temp Pulse Resp BP Pulse Ox 98.2 F 72 15 100/59 92 07/14/18 11:20 07/14/18 11:20 07/14/18 11:20 07/14/18 11:20 07/14/18 11:20 Exam: Gen.: Nonacute distress, alert and oriented 3 Skin: Normal color - Patient Status Disposition: Transfer SNF - Discharge Instructions Follow Up With: Apoorva Mejia PAC [Physician Metal Grader] - 07/25/18 9:00 am Madelyn Villa MD [Primary Care Provider] -
--- NOTE | 2018-07-14 15:19 | Physician Discharge Referral ---
ExtendedCare Referral Info Institutional Level of Care: Skilled - Diagnosis (1) Closed right hip fracture Status: Acute (2) Fracture of right ulnar styloid Status: Acute (3) Hypertension Status: Acute (4) Hyperlipidemia Status: Acute (5) Leukocytosis Status: Acute - Transfer Medications Prescriptions: diazePAM [Valium] 2 mg PO BID 3 Days #6 tablet OXYCODONE Oral CONC [Oxycodone Oral Conc] 10 mg SL Q4H PRN 3 Days #18 oral.syg PRN Reason: Severe Pain Home Medications: Amitriptyline [Elavil] 50 mg PO HS 08/14/16 [History] Furosemide [Lasix] 20 mg PO Q48H 08/14/16 [History] Omeprazole [PriLOSEC] 20 mg PO DAILY 08/14/16 [History] Pravastatin Sodium [Pravachol] 40 mg PO DAILY 08/14/16 [History] Zonisamide [Zonegran] 100 mg PO HS 08/14/16 [History] Aspirin Enteric Coated [Aspirin EC] 162 mg PO DAILY 07/10/18 [History] Calcium Carbonate [Calcium] 500 mg PO DAILY 07/10/18 [History] Lactobacillus Acidophilus/Fos [Acidophilus Probiotic Tablet] 1 each PO DAILY 08/17 [History] Lisinopril [Zestril] 10 mg PO DAILY 07/10/18 [History] Multivit-Minerals/Folic/Ginkgo [One Daily For Women 50+ Adv Tb] 1 each PO DAILY 07/10/18 [History] OXYCODONE Oral CONC [Oxycodone Oral Conc] 10 mg SL Q4H PRN 3 Days #18 oral.syg 07/14/18 [Rx] diazePAM [Valium] 2 mg PO BID 3 Days #6 tablet 07/14/18 [Rx] Allergies/Adverse Reactions: 3 Allergy/AdvReac Type Severity Reaction Status Date / Time Penicillins Allergy Hives Verified 07/10/18 11:37 levofloxacin [From Levaquin] AdvReac Tendonitis Verified 07/10/18 11:37 - Respiratory Orders Smoking Cessation: Smoking cessation has been advised. For more information, call the [place] Tobacco Quit Line at 8-120-TPEE-NOW. CERTIFICATION: I certify that the transfer of the above named patient to an Extended Care Facility is necessary for the continuing treatment of the diagnosis listed. The above information is true and accurate reflection of patient's current condition. Confidential - Redisclosure prohibited without a patient's written consent.
[2018-07-14 15:51] VITALS: BP 108/67
[2018-07-14] MEDS: OXYCODONE Oral CONC 10 MG/0.5 ML ORAL.SYG SL PRN (16:12)
== END 2018-07-14 17:10 | DRG 481 ==
LOC: 3NENU → SUATTDRO 23:34
PROVIDERS: ADMIT Internal Medicine; ATTEND Hospitalist